=== PATIENT | male | born 1985 | race Caucasian/White ===

== ENCOUNTER 2019-11-07 15:40 | Emergency (ER) | payer OTHER, SELFPAY ==
--- NOTE | 2019-11-07 15:50 | ED.BACK ---
HPI - Back Pain/Injury General Chief Complaint: Back Pain/Injury Stated Complaint: back pain Time Seen by Provider: 11/07/19 15:55 Source: patient and RN notes reviewed Mode of arrival: ambulatory Limitations: no limitations History of Present Illness HPI Narrative: 33-year-old male presents with left lower back pain radiating to the left groin area. Reports 3-day history of back pain. He reports urinary frequency, however denies dysuria, hematuria, abnormal penile discharge, scrotal pain, scrotal swelling, scrotal redness. Denies known injury, trauma. Reports some positions are more painful than others. Reports at its worst the pain is a 4 out of 10. Denies perianal anesthesia, loss of bowel or bladder function, weakness in the extremity, fever, abdominal pain. MD elicited complaint: back pain Related Data Allergies Allergy/AdvReac Type Severity Reaction Status Date / Time No Known Allergies Allergy Unverified 02/13/19 19:10 Review of Systems Review of Systems: Narrative: CONSTITUTIONAL: Denies malaise, chills, sweats, or fever. CARDIOVASCULAR: Denies chest pain, palpitations RESPIRATORY: Denies cough or dyspnea. GASTROINTESTINAL: Denies abdominal pain, nausea, vomiting, diarrhea, bloody, or mucous stools. GENITOURINARY: Denies scrotal swelling, redness, pain, dysuria or hematuria. Reports urine frequency SKIN: Denies bruising, redness MUSCULOSKELETAL: Reports left low back pain, radiates to the left groin. Denies myalgia. NEUROLOGIC: Denies numbness, weakness, or headache. All systems reviewed & are unremarkable except as noted in HPI and below PMFSH Comments At time of signature, agree with nursing past medical, surgical, social and family history. There is no relevant family history pertinent to the presenting complaint Exam Narrative: Exam Narrative: GENERAL: Well-appearing, well-nourished, and in no acute distress. HEAD: Normocephalic, atraumatic. EYES: PERRLA and EOMI. NECK: Supple. No lymphadenopathy. CHEST: Clear to auscultation. No respiratory distress. HEART: Regular rate and rhythm. Distal pulses palpable and equal, cap refill <3 seconds ABDOMEN: Soft, nontender, nondistended, normal active bowel sounds, no palpable or pulsatile masses. No CVA tenderness MUSCULOSKELETAL: Normal range of motion and strength in all extremities; 5/5 strength with hip flexion and extension, dorsiflexion and extension, knee flexion and extension, plantar flexion and extension. Normal sensation in dermatomal distributions with sensitivity to light touch and pain. No midline back tenderness to palpation. No paraspinal tenderness. Transfers from lying to sitting to standing. SKIN: Warm, dry, no rash. No ecchymosis, erythema, open wounds to back. NEURO: No focal deficits. Alert and oriented x3. Reflexes intact. Normal gait. PSYCH: Normal mood and affect : Male General Exam: Yes normal external exam Penis: Yes normal penis Meatus: meatus normal Scrotum: scrotum normal Testes: Testes normal Course Course Emergency Course: Patient is aware of diagnosis, understands and agrees to treatment plan. Anticipatory guidance given. Patient agrees to follow-up as directed and is aware of reasons to seek care at the emergency department. Portions of this record may have been created with voice recognition software Vital Signs Vital signs: Vital Signs Temperature 97.8 F 11/07/19 15:54 Pulse Rate 85 11/07/19 15:54 Respiratory Rate 16 11/07/19 15:54 Blood Pressure 141/83 H 11/07/19 15:54 Pulse Oximetry 99 11/07/19 15:54 Temperature 97.8 F 11/07/19 15:54 Pulse Rate 85 11/07/19 15:54 Respiratory Rate 16 11/07/19 15:54 Blood Pressure 141/83 H 11/07/19 15:54 Pulse Oximetry 99 11/07/19 15:54 Reviewed. MDM - Back Pain/Injury MDM Narrative Medical decision making narrative: No risk factors or findings concerning for epidural abscess, diskitis, vertebral osteomyelitis, cord compression, cauda equina, vertebra
[2019-11-07 15:54] VITALS: BP 141/83; PULSE 85; RESP 16; TEMP 36.6; O2SAT 99
== END 2019-11-07 16:13 | disposition home or self-care (01) ==
PROVIDERS: Emergency Provider Nurse Practitioner
DX: M54.5 Low back pain (principal)
CPT/HCPCS: 81003; 99213; G0463

== ENCOUNTER 2023-08-22 16:40 | Emergency (ER) | payer BC, SELFPAY ==
--- NOTE | 2023-08-22 16:43 | ED.URI ---
HPI - URI/Sore Throat General Chief Complaint: Upper Respiratory Infection Stated Complaint: Cough Time Seen by Provider: 08/22/23 17:12 Source: patient, RN notes reviewed and old records reviewed Mode of arrival: ambulatory Limitations: no limitations History of Present Illness HPI Narrative: 37-year-old male presents to the [facility] with increasing cough, congestion and wheezing for the last 1 and half to 2 weeks. States he has been out of his medications. Has a history of asthma Denies any fevers. Onset (ago): week(s) (1.5-2) Related Data Home Medications Medication Instructions Recorded Confirmed albuterol sulfate 90 mcg/actuation 2 puff inhalation PRN PRN 08/22/23 08/22/23 aerosol inhaler Shortness Of Breath Or Wheezing fluticasone fur. 200 mcg-umeclid 1 inh inhalation DAILY 08/22/23 08/22/23 62.5 mcg-vilant 25 mcg inhalat.powder (Trelegy Ellipta) Allergies Allergy/AdvReac Type Severity Reaction Status Date / Time No Known Allergies Allergy Verified 08/22/23 16:52 Review of Systems Review of Systems: All systems reviewed & are unremarkable except as noted in HPI and below Constitutional: Constitutional: Reports no additional constitutional complaints Eyes: Eyes: Reports no additional eye complaints ENT: Reports system reviewed and no additional complaints, except as documented Cardiovascular: Cardiovascular: Reports no additional cardiovascular complaints, Denies chest pain and Denies dyspnea Respiratory: Respiratory: Reports as per HPI, Denies chest congestion, Reports cough, Denies dyspnea and Reports wheezing Gastrointestinal: Gastrointestinal: Reports no additional gastrointestinal complaints, Denies abdominal pain, Denies nausea and Denies vomiting Musculoskeletal: Musculoskeletal: Reports no additional musculoskeletal complaints Integumentary/Breasts: Skin/Breast: Reports system reviewed and no additional complaints, except as docu Neurologic: Reports system reviewed and no additional complaints, except as documented Psychiatric: Psychiatric: Reports no additional psychiatric complaints Allergic/Immunologic: Allergic/Immunologic: Reports no additional allergic/immunologic complaints PMFSH Comments At the time of my signature, I reviewed and agree with the nursing past medical, surgical, social, and family history. There is no relevant family history pertinent to the patient complaint. Exam Const: General: cooperative, healthy appearing, comfortable, no acute distress, well developed, alert and well nourished Nutritional Appearance: well nourished Orientation/consciousness: patient oriented x3 Limitations: no limitations HENMT: Head: normal to inspection Ears: hearing grossly normal bilaterally, external ears normal, TM's normal bilaterally, EAC's normal, mastoids normal and no periauricular adenopathy Face/Nose/Sinus: Normal external nose present, Normal nares present, Normal nasal mucous membranes and turbinates present, normal facial exam and face symmetric Face and sinus: normal facial exam and face symmetric Mouth: Yes Normal oral and palatal mucosa present, Yes lip normal, Yes tongue normal and Yes moist mucous membranes Throat: posterior oropharynx normal, tonsils normal, uvula midline and postnasal drainage Eyes: General: appearance normal, both eyes and all related structures Alignment and Position: alignment normal Periorbital: periorbital findings normal Pupils: Equal, round and reactive pupils present EOM: EOMs intact bilaterally Neck: Neck: normal visual inspection, full ROM, no lymphadenopathy and no meningeal signs Chest: Chest palpation & inspection: normal inspection of the chest Resp: Effort & Inspection: normal respiratory effort and able to speak in complete sentences Auscultation: no crackles, no rales, no rhonchi, wheezes expiratory wheezes and throughout and diminished lung sounds bilateral throughout Cardio: Rate: regular rate Rhythm: regular rhythm Ba
[2023-08-22 16:55] VITALS: BP 135/71; PULSE 102; RESP 18; TEMP 36.1; O2SAT 98
[2023-08-22] MEDS: ALBUTEROL SULFATE NEB 2.5 MG/3 ML INH INHALATION (17:26)
[2023-08-22] MEDS: IPRATROPIUM BR 0.02% INH SOLN 0.5 MG/2.5 ML VIAL INHALATION (17:27)
[2023-08-22 17:29] VITALS: PULSE 82; RESP 18; O2SAT 98
[2023-08-22 17:50] VITALS: PULSE 94; RESP 18; O2SAT 98
== END 2023-08-22 17:53 | disposition home or self-care (01) ==
PROVIDERS: Emergency Provider Nurse Practitioner
DX: J45.909 Unspecified asthma, uncomplicated (principal); Z86.16 Personal history of COVID-19; Z98.52 Vasectomy status
CPT/HCPCS: 94640; 99213; G0463

== ENCOUNTER 2024-12-20 08:39 | Outpatient (CLI) | payer BC, SELFPAY ==
[2024-12-20 09:08] LABS: Basophils Absolute Auto 0.1 K/mm3 (0.0-0.1); Basophils Percent Auto 1.1 % (0.2-1.2); Eosinophils Absolute Auto 0.5 K/mm3 (0-0.3); Eosinophils Percent Auto 5.8 % (0-4.4); Hematocrit 48.2 % (42.0-52.0); Hemoglobin 15.7 g/dL (14.0-18.0); Immature Granulocyte Absolute 0.04 K/mm3 (0.00-0.031); Immature Granulocyte Percent A 0.5 % (0-0.5); Lymphocytes Absolute Auto 2.31 K/mm3 (0.9-3.2); Lymphocytes Percent Auto 26.2 % (18.3-44.2); Mean Corpuscular HGB Conc 32.6 g/dl (32-36); Mean Corpuscular Volume 86.1 fl (80-100); Mean Platelet Volume 9.7 fl (7.4-10.4); Monocytes Absolute Auto 0.7 K/mm3 (0.1-0.6); Monocytes Percent Auto 8.2 % (2.6-8.5); Neutrophils Absolute Auto 5.2 K/mm3 (1.3-6.7); Neutrophils Percent Auto 58.2 % (45.5-73.1); Platelet Count Result 306 k/mm3 (150-375); Red Cell Distribution Width 13.2 % (11.5-14.5); White Blood Count 8.8 K/mm3 (4.5-10.0)
[2024-12-20 09:21] LABS: Alanine Aminotransferase 26 U/L (6-50); Albumin Level 4.3 g/dL (3.5-5.1); Alkaline Phosphatase 28 U/L (38-126); Anion Gap 9 mmol/L (4-12); Aspartate Amino Transferase 23 U/L (17-59); Bilirubin,Total 0.7 mg/dL (0.2-1.3); Blood Urea Nitrogen 13 mg/dL (9-20); Calcium 9.6 mg/dL (8.4-10.2); Carbon Dioxide 26 mmol/L (22-30); Chloride 107 mmol/L (98-107); Cholesterol 198 mg/dL (0-200); Estimated Glomerular Filt Rate > 60; Glucose 96 mg/dL (65-110); HDL Direct 48 mg/dL; Potassium 4.2 mmol/L (3.4-5.0); Sodium 142 mmol/L (137-145); Total Protein 7.3 g/dL (6.3-8.2); Triglycerides 57 mg/dL (<150)
[2024-12-20 09:32] LABS: LDL Cholesterol Direct 122 mg/dL
== END 2024-12-20 08:40 | disposition home or self-care (01) ==
LOC: ANHLAB 08:43
PROVIDERS: PCP Internal Medicine; Visit Provider Internal Medicine
DX: Z00.00 Encounter for general adult medical examination without abnormal findings (principal)
CPT/HCPCS: 36415; 80053; 80061; 85025

== ENCOUNTER 2025-04-06 01:51 | Day surgery (SDC) | payer BC, SELFPAY ==
[2025-03-27 12:54] VITALS: BMI 33.3
--- OUTSIDE RECORDS SUMMARY | 2025-04-06 01:54 | XMS_ITS | Clinical Summary ---
Author Organization [facility] Address [address] [place] [address] Care Team Providers Care Engine Pilot Name Role Phone Dwayne Bourgeois DO Primary Care Provider [phone] Allergies No known active allergies Medications albuterol HFA (PROVENTIL HFA,VENTOLIN HFA,PROAIR HFA) 90 mcg/actuation inhaler Inhale 2 puffs every 6 (six) hours as needed for wheezing Active fluticasone propion-salmete roL (ADVAIR DISKUS) 250-50 mcg/dose diskus inhaler Inhale 1 puff 2 (two) times a day Rinse mouth with water after use. Do not swallow. Active traMADoL (ULTRAM) 50 mg tablet Take 1 tablet (50 mg total) by mouth every 4 (four) hours as needed for pain 10 tablet 01/07/2022 Active Surgical History Surgery Date Site/Laterality Comments KNEE ARTHROSCOPY Right Medical History Medical History Date Comments Asthma Motion sickness Family History Relation Name Status Comments Father Alive Mother Alive Sister Alive Social History Tobacco Use Types Packs/Day Years Used Date Smoking Tobacco: Every Day Cigarettes 1 25.8 Started: 1999 Smokeless Tobacco: Never AUDIT-C Answer Date Recorded Q1: How often do you have a drink containing alc ohol? Monthly or less 12/30/2021 Q2: How many drinks containi ng alcohol do you have on a typical day when you are drinking? 1 or 2 12/30/2021 Q3: How often do you have si x or more drinks on one occasion? Never 12/30/2021 Sex and Gender Information Value Date Recorded Sex Assigned at Not on file Legal Sex Male 11:46 AM CDT Gender Identity Not on file Sexual Orientation Not on file Obstetrics History Last Filed Vital Signs Vital Sign Reading Time Taken Comments Blood Pressure 121/63 01/07/2022 10:45 AM CDT Pulse 89 01/07/2022 10:45 AM CDT Temperature 36.7 C (98 F) 01/07/2022 10:15 AM CDT Respiratory Rate 16 01/07/2022 10:4 5 AM CDT Oxygen Saturation 95% 01/07/2022 10: 45 AM CDT Inhaled Oxygen Concentration - - Weight 141.5 kg (311 lb 14.4 oz) 01/07/2022 7:19 AM CDT Height 182.9 cm (6') 01/07/2022 7:19 AM CDT Body Mass Index 42.3 01/07/2022 7:19 AM CDT Plan of Treatment Health Maintenance Due Date Last Done Comments Depression Screening 1987 Hepatitis C Screening 1987 Varicella Vaccines (1 of 2 - 13+ 2-dose series) 11/25/2000 Hepatitis B Screening 11/25/2005 Regular Well Visit/Exam 18-64 11/25/2005 Pneumococcal vaccine <65 (1 of 2 - PCV) 11/25/2006 HPV Vaccines (1 - 3-dose SCDM series) 11/25/2014 Covid-19 Vaccine ( season) 2025 12/16/2021, 10/31/2020, 10/08/2020 Influenza Vaccine (#1) 2025 , 04/02/2021, 04/02/2020 DTaP/Tdap/Td Vaccine (2 - Td or Tdap) 08/03/203011/2020 Insurance [facility] PL[facility]US [place] [id number] Care Teams Engine Pilot Relationship Specialty Start Date End Date Dwayne Bourgeois DO PCP - General Family Medicine 12/31/21
--- OUTSIDE RECORDS SUMMARY | 2025-04-06 01:54 | XMS_ITS | Clinical Summary ---
Author Organization [facility] Address [facility] [place] [address] Care Team Providers Care Assistant Toddler Teacher Name Role Phone yKung Reynoso DO Primary Care Provider [phone] Allergies No known active allergies Medications finasteride 5 MG tablet Take 5 mg by mouth daily. Active cetirizine 10 MG tablet Take 10 mg by mouth daily. Active triamcinolone 0.1 % creamIndications :Flexural eczema Apply topically 2 (two) times daily. 45 g 3 2 Active varenicline (CHANTIX STARTING MONTH ) 0.5 MG X 11 & 1 MG X 42 tabletIndication s:Tobacco dependence 0.5 MG EVERYDAY ON DAYS 1-3; 0.5 MG TWICE A DAY ON DAYS 4-7; THEN 1 MG TWICE A DAY 53 tablet 2 Active Additional Information Patient not taking.Reported on 08/26/2022 albuterol sulfate HFA 108 (90 Base) MCG/ACT inhalerIndicatio ns:Moderate persistent asthma without complication (HHS/HCC) INHALE 2 PUFFS INTO THE LUNGS EVERY 6 HOURS NEEDED FOR WHEEZE 18 g 3 2 Active albuterol sulfate HFA 108 (90 Base) MCG/ACT inhalerIndicatio ns:Moderate persistent asthma without complication (HHS/HCC) INHALE 1 PUFF INTO THE LUNGS 3 (THREE) TIMES DAILY NEEDED FOR WHEEZING OR SHORTNESS OF BREATH. 18 g 1 3 Active Fluticasone-Umec lidin-Vilant (TRELEGY ELLIPTA) 200-62.5-25 MCG/ACT AEROSOL POWDER, BREATH ACTIVATEDIndicat ions:Moderate persistent asthma without complication (HHS/HCC) INHALE 1 PUFF DAILY DIRECTED 60 each 1 3 Active Active Problems Problem Noted Date Diagnosed Date Flexural eczema 12/16/2021 Tobacco dependence 12/16/2021 Asthma ([facility]) 07/01/2021 Rupture of anterior cruciate ligament of right k nee 01/07/2021 Mcl deficiency, knee, right 01/07/2021 Old tear of meniscus of right knee 01/07/2021 Moderate persistent asthma without complication ([facility]) 01/07/2021 Umbilical hernia without obstruction and without gangrene 01/07/2021 Benign paroxysmal positional vertigo, unspecified laterality 01/07/2021 Class 3 severe obesity due t o excess calories with serious comorbidity and body mass index (BMI) of 40.0 to 44.9 in adult 01/07/2021 Immunizations Immunization Administration Dates Next Due Influenza (Generic) 04/02/2021 PFIZER COVID-19 (MARTIN CAP), MRNA, LNP-S, PF, 30 MCG/0.3 ML FOZIA-SUCROSE, IM 12/16/2021 Family History Medical History Relation Comments Diverticulitis Father Brain Aneurysm Paternal Grandmother Relation Status Comments Father Paternal Grandmother Social History Tobacco Use Types Packs/Day Years Used Date Smoking Tobacco: Every Day Smokeless Tobacco: Never Tobacco Cessation:Ready to Q uit: No; Counseling Given: Yes Comments:The provider can provide you with more information about quitting. Alcohol Use Standard Drinks/Week Comments Yes 0 (1 standard drink = 0.6 oz pur e alcohol) rarly PHQ-2 Answer Date Recorded PHQ-2 Score - If the patient scores above 3, please move on to questions 3-9 0 12/16/2021 Sex and Gender Information Value Date Recorded Sex Assigned at Not on file Legal Sex Male 12:02 PM CDT Gender Identity Not on file Sexual Orientation Not on file Last Filed Vital Signs Vital Sign Reading Time Taken Comments Blood Pressure 120/80 12/16/2021 9:18 AM CDT Pulse 101 12/16/2021 9:18 AM CDT Temperature 36.2 C (97.2 F) 12/16/2021 9:18 AM CDT Respiratory Rate 16 12/16/2021 9:18 AM CDT Oxygen Saturation 99% 12/16/2021 9:18 AM CDT Inhaled Oxygen Concentration - - Weight 139.3 kg (307 lb) 12/16/2021 9:18 AM CDT Height 182.9 cm (6') 12/16/2021 9:18 AM CDT Body Mass Index 41.64 12/16/2021 9:18 AM CDT Plan of Treatment Health Maintenance Due Date Last Done Comments Hepatitis C 11/25/2005 DTaP, Tdap and Td Vaccines ( 1 - Tdap) 11/25/2006 Hepatitis B Vaccines (1 of 3 - 19+ 3-dose series) 11/25/2006 Pneumococcal Vaccine: Pediatrics (0 to 5 Years) and At-Risk Patients (6 to 49 Years) (1 of 2 - PCV) 11/25/2006 HPV Vaccines (1 - 3-dose SCD M series) 11/25/2014 Annual Physical 12/16/2022 12/16/2021 COVID-19 Vaccine ( - 2024-2 6 season) 2025 12/16/2021, 10/31/2020, 10/08/2020 Influenza Adult (#1) 2025 04/02/2021 Meningococcal B Vaccine Aged Out No l onger eligible based on patient's age to complete this topic Meningococcal Vaccine Aged Out No anna agnes eligible based on patient's age to complete this topic RSV Immunizations Under 20 Months Aged Out No longer eligible b ased on patient's age to complete this topic Insurance [facility] Care Teams Assistant Toddler Teacher Relationship Specialty Start Date End Date Kyung Reynoso DO [address] [place] [id number] PCP - General FAMILY PRACTICE 07/24/22
--- OUTSIDE RECORDS SUMMARY | 2025-04-06 01:54 | XMS_ITS | Encounter Summary ---
Author Organization [facility] Address [facility] [place] [address] Care Team Providers Care Shoer Name Role Phone Kyung Reynoso DO Primary Care Provider [phone] Encounter Details Date Type Department Care Team (Late st Contact Info) Description 08/25/2022 [email or web address] Message Enc [facility] Family Medicine - [address], [address] [place] [address] Jayshree, [facility] Provider Medication request Social History Tobacco Use Types Packs/Day Years Used Date Smoking Tobacco: Every Day Smokeless Tobacco: Never Comments:The provider can pr ovide you with more information about quitting. PHQ-2 Answer Date Recorded PHQ-2 Score - If the patient scores above 3, please move on to questions 3-9 0 12/16/2021 Sex and Gender Information Value Date Recorded Sex Assigned at Not on file Legal Sex Male 12:02 PM CDT Gender Identity Not on file Sexual Orientation Not on file documented as of this encounter Plan of Treatment Not on file documented as of this encounter Visit Diagnoses Not on filedocumented in this encounter Additional Health Concerns Assessment Noted Time PHQ-9 Depression Total Score: 4 12/17/19 22 10:02 AM CDT documented as of this encounter Care Teams Shoer Relationship Specialty Start Date End Date Kyung Reynoso DO [address] [place] [address] PCP - General FAMILY PRACTICE 07/24/22 documented as of this encounter
[2025-04-06 06:18] VITALS: BP 117/78; PULSE 98; RESP 18; TEMP 36.6; O2SAT 97
[2025-04-06] MEDS: LACTATED RINGERS 1,000 ML 150 ML IV CONT (06:34)
--- NOTE | 2025-04-06 07:06 | P.PNAN_ITS ---
Anes - Initial Pre Proc Eval Procedure: Operation Date: 04/06/25 07:30 Proposed Procedures p Diagnostic Colonoscopy - Tyrone Suárez MD Date/Time: 04/06/25 07:06 Surgeon: Tyrone Suárez MD Pre Op Diagnosis: Hemorrhage of anus and rectum Patient Data Age: 39 Gender: M Height: 1.83 m Weight: 114.7 kg Last Vital Signs Temp 36.6 C 04/06/25 06:18 Pulse 98 04/06/25 06:18 Resp 18 04/06/25 06:18 BP 117/78 04/06/25 06:18 Pulse Ox 97 04/06/25 06:18 O2 Del Method Room Air 04/06/25 06:18 Allergies Allergy/AdvReac Type Severity Reaction Status Date / Time No Known Allergies Allergy Verified 04/06/25 06:16 Home Medications ?Medication ?Instructions ?Recorded ?Confirmed ?Type budesonide-formoterol HFA 160 2 puff inhalation Q12H # 10.2 grams 08/31/24 04/06/25 Rx mcg-4.5 mcg/actuation aerosol inhaler (Symbicort) escitalopram oxalate 10 mg tablet 20 mg (2 x 10 mg) PO DAILY #60 tabs 12/26/24 04/06/25 Rx semaglutide (weight loss) 1 mg/0.5 1 mg (0.5 mL) subcu t WEEKLY #2 mL 03/01/25 04/06/25 Rx mL subcutaneous pen injector (Wegovy) albuterol sulfate 90 mcg/actuation 2 puff inhalation Q 6H PRN 04/04/25 04/06/25 Rx aerosol inhaler Shortness Of Breath Or Wheez ing #8.5 grams Patient hx anesthesia problems: none Family hx anesthesia problems: none Results Review: All pre-operative results and documents have been reviewed as part of the pre- operative evaluation. [facility] Past Medical History Medical History Asthma Tobacco use GERD (gastroesophageal reflux disease) Bright red blood per rectum BMI 33.0-33.9,adult Family History Family History Father Heart problem AAA (abdominal aortic aneurysm) Cerebrovascular accident Acute diverticulitis Mother Asthma Sibling No problems noted. Social History Social History Smoking packs per day: 1 Smoking cigarettes per day: 20.0 Years smoked: 15 Smoking pack-years: 15.00 Smoking status: Current every day smoker Tobacco type: cigarettes Second hand tobacco smoke exposure: No Alcohol intake: never Substance use: never Substance use type: does not use Do You Feel Safe in your Home?: Yes Lack of Transportation: No Lack of Food: Never True Current Housing: I Have Housing Concerned About Future Housing: No Difficulty Paying Gas/Electric Bills: No Difficulty Paying for Meds: No Currently Unemployed: No Education: High School Diploma/GED Difficulty w/ Childcare or Family Care: No Living arrangements: with family Occupation/Education: occupation 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[employer] Gender identity (if verbalized by the patient): Male Sexual Orientation (if Verbalized by the Patient): Straight or Heterosexual Spiritual care concerns: No Anes - Eval Final PreProcedure Day of Procedure 04/06/25 07:06 Patient weight: obese Heart: regular rate and rhythm Lungs: decreased breath sounds Airway: Mallampati scale class II Neurological: alert and oriented Last oral intake: >/= 8 hours ASA classification: III Emergent: no Anesthetic plan: proceed Anesthesia type and monitoring: general GIVS and standard monitoring Results Review: All pre-operative results and documents have been reviewed as part of the pre-operative evaluation. Informed Consent: The patient's anesthetic plan and its attendant risks and benefits were discussed with the patient/family/POA. Questions were solicited and answers provided to the satisfaction of the patient/family/POA.
--- NOTE | 2025-04-06 07:28 | P.HP_ITS ---
H&P: HPI History of Present Illness Date/Time: 04/06/25 07:28 Chief Complaint: Rectal bleeding Narrative: the patient has been experiencing intermittent minor degree rectal bleeding for the past 2 months. He is referred for colonoscopy. There is no family history of colorectal cancer and the patient is otherwise asymptomatic. Review of Systems Review of Systems: All systems reviewed & are unremarkable except as noted in HPI and below PMFSH Past Medical History Medical History Asthma Tobacco use GERD (gastroesophageal reflux disease) Bright red blood per rectum BMI 33.0-33.9,adult Family History Family History Father Heart problem AAA (abdominal aortic aneurysm) Cerebrovascular accident Acute diverticulitis Mother Asthma Sibling No problems noted. Social History Social History Smoking packs per day: 1 Smoking cigarettes per day: 20.0 Years smoked: 15 Smoking pack-years: 15.00 Smoking status: Current every day smoker Tobacco type: cigarettes Second hand tobacco smoke exposure: No Alcohol intake: never Substance use: never Substance use type: does not use Do You Feel Safe in your Home?: Yes Lack of Transportation: No Lack of Food: Never True Current Housing: I Have Housing Concerned About Future Housing: No Difficulty Paying Gas/Electric Bills: No Difficulty Paying for Meds: No Currently Unemployed: No Education: High School Diploma/GED Difficulty w/ Childcare or Family Care: No Living arrangements: with family Occupation/Education: occupation 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[employer] Gender identity (if verbalized by the patient): Male Sexual Orientation (if Verbalized by the Patient): Straight or Heterosexual Spiritual care concerns: No Meds Home Medications and Allergies Home Medications ?Medication ?Instructions ?Recorded ?Confirmed ?Type budesonide-formoterol HFA 160 2 puff inhalation Q12H # 10.2 grams 08/31/24 04/06/25 Rx mcg-4.5 mcg/actuation aerosol inhaler (Symbicort) escitalopram oxalate 10 mg tablet 20 mg (2 x 10 mg) PO DAILY #60 tabs 12/26/24 04/06/25 Rx semaglutide (weight loss) 1 mg/0.5 1 mg (0.5 mL) subcu t WEEKLY #2 mL 03/01/25 04/06/25 Rx mL subcutaneous pen injector (VaughnPager) albuterol sulfate 90 mcg/actuation 2 puff inhalation Q 6H PRN 04/04/25 04/06/25 Rx aerosol inhaler Shortness Of Breath Or Wheez ing #8.5 grams Allergies Allergy/AdvReac Type Severity Reaction Status Date / Time No Known Allergies Allergy Verified 04/06/25 06:16 Vital Signs Vital Signs - 24 hr 04/06/25 06:18 Temperature 97.9 F Pulse Rate 98 Respiratory Rate 18 Blood Pressure 117/78 Pulse Oximetry 97 Oxygen Delivery Room Air Exam Const: General: cooperative and healthy appearing Resp: Effort & Inspection: normal respiratory effort and able to speak in complete sentences Auscultation: clear to auscultation bilaterally Cardio: Rate: regular rate Rhythm: regular rhythm GI: Inspection: normal to inspection GI Palp: No No hepatosplenomegaly present Auscultation: normal bowel sounds Rectal Exam: deferred Skin: General skin exam: normal color Psych: Appearance: grossly normal Mental Status: mental status grossly normal Assessment and Plan Assessment and plan (1) Bright red rectal bleeding: Code(s): K62.5 - Hemorrhage of anus and rectum Status: Acute Assessment and Plan: The patient is deemed a good candidate for the procedure. Consent signed. Will proceed.
[2025-04-06 07:42] VITALS: BP 107/70; PULSE 92; RESP 19; O2SAT 98
[2025-04-06 07:52] VITALS: BP 114/72; PULSE 89; RESP 17; O2SAT 99
[2025-04-06 08:02] VITALS: BP 118/75; PULSE 84; RESP 19; O2SAT 99
== END 2025-04-06 08:25 | disposition home or self-care (01) ==
PROVIDERS: PCP Internal Medicine; Referring Provider Nurse Practitioner Family; Visit Provider Internal Medicine Gastroenterology
PROC: 0DJD8ZZ Inspection of Lower Intestinal Tract, Via Natural or Artificial Opening Endoscopic (ICD-10-PCS; CPT 45378; principal; 2025-04-06 07:30)
DX: K62.5 Hemorrhage of anus and rectum (principal); J45.909 Unspecified asthma, uncomplicated; K21.9 Gastro-esophageal reflux disease without esophagitis; F17.210 Nicotine dependence, cigarettes, uncomplicated; E66.9 Obesity, unspecified; Z68.34 Body mass index [BMI] 34.0-34.9, adult; Z79.51 Long term (current) use of inhaled steroids; Z79.85 Long-term (current) use of injectable non-insulin antidiabetic drugs; Z82.49 Family history of ischemic heart disease and other diseases of the circulatory system
CPT/HCPCS: 45378; J2003; J2704; J7120